=== PATIENT | male | born 1940 | race Caucasian/White ===

== ENCOUNTER 2022-12-06 07:30 | Day surgery (SDC) | payer MEDICARE, OTHER ==
[~2022-12-06] VITALS: Ht 177.8 cm; Wt 80.5 kg
[~2022-12-06 07:30] MED LIST: BRIMONIDINE TART5 ML OPTH; COZAAR50 MG PO; SIMVASTATIN20 MG PO; TIMOPTIC10 ML OD; ZINC30 MG PO
--- NOTE | 2022-12-06 09:17 | NUR ---
12/06/22 0917 Ashley Saez 0908 PT TO PACU AWAKE AND ALERT ASKING QUESTIONS ABOUT PROCEDURE, PT ASKING FOR WATER, TAKING SIPS TOLERATES WELL.
--- NOTE | 2022-12-06 10:59 | OR ---
[facility] [address] [place], [place] [address] Signed DATE OF OPERATION: 12/06/2022 SURGEON: Jules Flores MD PREOPERATIVE DIAGNOSES: 1. Family history of colon cancer maternal grandfather. 2. History of hyperplastic polyps (2010). POSTOPERATIVE DIAGNOSES: 1. Scattered diverticula. 2. Hyperplastic polyps, sigmoid and left colon. PROCEDURE: Total colonoscopy to cecum with cold morcellation polypectomy x2 plus. ANESTHESIA: Intravenous sedation, fentanyl 200 mcg (100 infiltrated), Versed 5 mg. INDICATION: This 82-year-old white man is a patient of Dr. Lucia, known to me from the past having undergone colonoscopy in 2010 at which time hyperplastic polyps were found at the splenic flexure and sigmoid. He has family history of colon cancer in a maternal grandfather. He has no symptoms currently of bleeding, diarrhea or constipation. He is admitted to undergo colonoscopy on the basis of his family history and prior history of polyps. He understands the risk of bleeding, infection, and perforation. FINDINGS: The prep was excellent. Complete colonoscopy was undertaken to the cecum. He had scattered diverticula throughout the colon. There were hyperplastic appearing polyps of the left colon and sigmoid, which were excised with cold morcellation technique. PROCEDURE IN DETAIL: The patient was brought to the surgical endoscopy suite, placed in the lateral decubitus position, given intravenous sedation to the point of slurred speech and nystagmus. Of note, initial infusion of fentanyl appeared to be ineffective and likely infiltrated requiring restart of an IV for completion of his intravenous sedation initially. After satisfactory intravenous sedation, a digital rectal examination was undertaken showing no sign of anorectal abnormality. An Olympus video colonoscope was passed in the rectum and manipulated throughout the Electronically Signed By: JULES FLORES MD 12/06/22 1059 PATIENT NAME: ROBYN MARIA OPERATIVE REPORT DATE OF : 44 REPORT #: [id number] PHYSICIAN: JULES FLORES MD PCP: CANDY LUCIA MD REPORT IS CONFIDENTIAL AND NOT TO BE RELEASED WITHOUT AUTHORIZATION [facility] [address] [place], [place] [address] Signed colon noting diverticula throughout, which were minimal in size. A hyperplastic appearing polyp was noted in the sigmoid, which was excised with cold morcellation technique. The scope was then advanced ultimately to the cecum. The ileocecal valve and appendiceal orifice were noted to be normal. The scope was withdrawn and examination throughout showed only scattered diverticula until the left colon and sigmoid where additional hyperplastic polypoid changes were noted. These were excised with cold morcellation technique. Retroflexed view in the rectum was normal. Scope was removed and the patient was taken to the recovery room in good condition. CONCLUDING DIAGNOSES: 1. Scattered diverticula. 2. Hyperplastic appearing polyps. PLAN: Would consider for repeat colonoscopy in 10 years if clinically appropriate; by that time, he will be 89 years of age, though he is physiologically much younger than his stated age at this time. Certainly, colonoscopy could be performed sooner if symptoms should develop. Would recommend high-fiber diet as well. MD BITA Bravo/CADENCE /[id number] cc: Dr. Lucia/Dr. Pritchett Copies: ~ Electronically Signed By: JULES FLORES MD 12/06/22 1059 PATIENT NAME: ROBYN MARIA OPERATIVE REPORT DATE OF : 44 REPORT #: [id number] PHYSICIAN: JULES FLORES MD PCP: CANDY LUCIA MD REPORT IS CONFIDENTIAL AND NOT TO BE RELEASED WITHOUT AUTHORIZATION
--- NOTE | 2022-12-10 14:17 | PATH ---
[facility] [address] [place], [place] [address] Signed SPECIMEN(S): A DESCENDING/LEFT COLON POLYPS SPECIMEN(S): B SIGMOID POLYPS SPECIMEN SOURCE: A. DESCENDING/LEFT COLON POLYPS B. SIGMOID POLYPS CLINICAL HISTORY: History of polyps, family history of colon CA. Postop: Small polyps, diverticulosis. Rule out #2 hyperplastic. FINAL PATHOLOGIC DIAGNOSIS: A. Descending / left colon polyps: - Benign polypoid colonic mucosa with focal slight hyperplastic features, negative for dysplasia, or malignancy. - Focal slight active mucosal inflammation and slight cryptitis (non-specific). - Incidental melanosis coli. B. Sigmoid polyps: - Hyperplastic polyps (multiple fragments). JVR:mari:[id number] MICROSCOPIC EXAMINATION: Histologic sections of all submitted blocks are examined by light microscopy. These findings, together with the gross examination, support the pathologic diagnosis. GROSS DESCRIPTION: A. The specimen, labeled and designated "Maria, descending colon polyp," is received in formalin and consists of five boateng soft tissue fragments, ranging from 0.1-0.2 cm. Entirely submitted in (A1). B. The specimen, labeled and designated "Maria, sigmoid colon polyps," is received in formalin and consists of six boateng soft tissue fragments, ranging from 0.2-0.3 cm. Entirely submitted in (B1). JS (under the direct supervision of a pathologist) The Gross Description was prepared using a voice recognition system. The report was reviewed for accuracy; however, sound-alike word errors, addition and/or deletions may occur. If there is any question about this report, please contact Client Services. PERFORMING LABORATORY: PATIENT NAME: ROBYN MARIA PATHOLOGY DATE OF : 44 REPORT #: [id number] PHYSICIAN: MICAH BLANTON PCP: CANDY LUCIA MD REPORT IS CONFIDENTIAL AND NOT TO BE RELEASED WITHOUT AUTHORIZATION [facility] [address] [place] [address] Signed The technical preparation was performed by [facility], [address] [place] [address] (CLIA#: [id number]). Professional interpretation was performed by [facility] - [facility], [address] [place] [id number] (CLIA#: [id number]). Diagnostician: Enoch Patel MD Pathologist Electronically Signed 12/10/2022 Copies: ~ PATIENT NAME: ROBYN MARIA PATHOLOGY DATE OF : 44 REPORT #: [id number] PHYSICIAN: MICAH BLANTON PCP: CANDY LUCIA MD REPORT IS CONFIDENTIAL AND NOT TO BE RELEASED WITHOUT AUTHORIZATION
== END 2022-12-06 09:45 | disposition home or self-care (01) ==
LOC: OPS 07:30 → DS 07:30 → OPS 08:15 → DS 14:00
PROVIDERS: ATTEND Surgery
PROC: 0DBN8ZX Excision of Sigmoid Colon, Via Natural or Artificial Opening Endoscopic, Diagnostic (ICD-10-PCS; 2022-12-06)
PROC: 0DBG8ZX Excision of Left Large Intestine, Via Natural or Artificial Opening Endoscopic, Diagnostic (ICD-10-PCS; principal; 2022-12-06 08:15)
DX: Z12.11 Encounter for screening for malignant neoplasm of colon (principal); K63.5 Polyp of colon; K57.30 Diverticulosis of large intestine without perforation or abscess without bleeding; K63.89 Other specified diseases of intestine; E78.5 Hyperlipidemia, unspecified; I10 Essential (primary) hypertension; Z86.010 Personal history of colon polyps; Z85.46 Personal history of malignant neoplasm of prostate
CPT/HCPCS: 99153; G0500; J2250; J3010; J7121